=== PATIENT | female | born 1960 | race Caucasian/White ===

== ENCOUNTER → 2016-09-05 | Outpatient (CLI) | payer BC ==
--- NOTE | 2016-09-05 16:31 | KCIC ---
PROCEDURE Bilateral digital screening mammogram. HISTORY 56-year-old female presents for screening mammography. TECHNIQUE Full field digital craniocaudal and mediolateral oblique views of both breasts are obtained. Computer-aided detection is applied. COMPARISON 08/02/2014 FINDINGS Breast parenchymal composition: Level B - Scattered fibroglandular densities. There is no suspicious mass, calcification or architectural distortion within either breast. IMPRESSION BI-RADS Category 2: Benign finding. Annual mammography is recommended. Mammography is not 100% sensitive in detecting breast cancer. Therefore, a self breast exam and a clinical breast exam are very important. A negative mammogram does not negate a clinically suspicious finding and should not result in a delay in biopsying a clinically suspicious abnormality. This patient's information has been entered into a reminder system for the patient to be notified with the results of this examination and a target date for her next mammograms. Electronically signed by: Fiona Valladares (Sep 05, 2016 16:30:10)
== END | disposition home or self-care (01) ==
LOC: KCIC MAMMO 15:55
PROVIDERS: ATTEND Obstetrics & Gynecology
DX: Z12.31 Encounter for screening mammogram for malignant neoplasm of breast (principal)
CPT/HCPCS: G0202; 77067

== ENCOUNTER 2017-01-07 18:46 | Emergency (ER) | payer BC ==
[~2017-01-07] VITALS: Ht 170.2 cm; Wt 92.5 kg
[2017-01-07] MEDS ORDERED: ONDANSETRON PF 4 MG/2 ML VIAL. IV ONE (19:15)
[2017-01-07] MEDS ORDERED: IV NORMAL SALINE 1000ML BAG 1,000 ML IV ONE (19:15)
[2017-01-07 19:57] LABS: BASO % 0 % (0-3); EOS % 0 % (0-3); HEMATOCRIT 43.1 % (36.0-47.0); HEMOGLOBIN 14.9 g/dL (12.0-15.5); LYMPH # 0.8 x10^3/uL (1.0-4.8); LYMPH % 8 % (24-48); MEAN CORPUSCULAR HEMOGLOBIN 31 pg (25-35); MEAN CORPUSCULAR HGB CONC 35 g/dL (31-37); MEAN CORPUSCULAR VOLUME 90 fL (79-100); MONO % 6 % (0-9); NEUT % 86 % (31-73); PLATELET COUNT 194 x10^3/uL (140-400); RED CELL DISTRIBUTION WIDTH 13.3 % (11.5-14.5); WHITE BLOOD COUNT 9.3 x10^3/uL (4.0-11.0)
[2017-01-07 20:08] LABS: CALCIUM 8.3 mg/dL (8.5-10.1); CREATININE 1.1 mg/dL (0.6-1.0); POTASSIUM 3.5 mmol/L (3.5-5.1)
[2017-01-07 20:18] LABS: ALBUMIN 3.4 g/dL (3.4-5.0); ALBUMIN/GLOBULIN RATIO 1.1 (1.0-1.7); TOTAL BILIRUBIN 0.6 mg/dL (0.2-1.0); TOTAL PROTEIN 6.5 g/dL (6.4-8.2)
[2017-01-07 20:24] LABS: PLT ESTIMATE ADEQUATE (ADEQUATE)
[2017-01-07 20:30] VITALS: BP 117/54
[2017-01-07 21:14] LABS: BILIRUBIN,URINE SMALL (NEG); GLUCOSE,URINE NEGATIVE (NEG); NITRITE,URINE NEGATIVE (NEG); PH,URINE 5.5; PROTEIN,URINE 30 mg/dL (NEG-TRACE); UROBILINOGEN,URINE 0.2 mg/dL (0.2 mg/dL)
[2017-01-07 21:24] LABS: BACTERIA,URINE MODERATE /HPF (0-FEW); SQUAMOUS EPITHELIAL CELL,UR MOD /LPF
[2017-01-07] MEDS ORDERED: CIPR500T94 PO (21:40)
--- NOTE | 2017-01-07 21:40 | PHYS DOC ---
Past Medical History Past Medical History: No Pertinent History Past Surgical History: No Surgical History Alcohol Use: None Drug Use: None Adult General Chief Complaint Chief Complaint: SYNCOPE HPI HPI Patient is a 56 year old female who presents with syncope. The patient states she was working at [employer] prior to arrival, had onset of lightheadedness, tunnel vision, nausea, and reportedly experienced syncopal episode. She thinks she fell onto the ground. She denies any headache or neck pain at this time. No witnessed seizure activity, denies tongue biting or bowel/bladder incontinence. She states she has had numerous episodes of loose stools today without vomiting or abdominal pain. She thinks she was exposed to Salmonella after drinking orange juice because her mother had similar symptoms and was hospitalized at [facility] reportedly being treated for Salmonella with ciprofloxacin. The patient denies fevers or chills, chest pain, palpitations, shortness of breath, hematochezia or melena, dysuria or hematuria. Denies extremity numbness or weakness or pain. Denies any significant past medical history. PCP is Dr. Goel. Review of Systems Review of Systems Constitutional: Denies fever or chills , reports syncope Eyes: Denies change in visual acuity HENT: Denies nasal congestion or sore throat Respiratory: Denies cough or shortness of breath Cardiovascular: Denies chest pain or edema GI: Denies abdominal pain, nausea, vomiting, bloody stools, reports diarrhea : Denies dysuria or hematuria Musculoskeletal: Denies back pain or joint pain Integument: Denies rash or skin lesions Neurologic: Denies headache, focal weakness or sensory changes Current Medications Current Medications Current Medications Medications (Trade) Dose Ordered Sig/Jessica Start Time Stop Time Status Last Admin Dose Admin Ondansetron HCl (Zofran) 4 mg 1X ONCE 01/07/17 19:15 01/07/17 19:16 DC 01/07/17 19:39 4 MG Sodium Chloride 1,000 ml @ 1,000 mls/hr 1X ONCE 01/07/17 19:15 01/07/17 20:14 DC 01/07/17 19:40 1,000 MLS/HR Allergies Allergies Allergies Coded Allergies Type Severity Reaction Last Updated Verified No Known Drug Allergies 01/07/17 No Physical Exam Physical Exam Constitutional: Obese, no acute distress, non-toxic appearance. HENT: Normocephalic, atraumatic, bilateral external ears normal, oropharynx moist, nose normal. Eyes: PERRLA, EOMI, conjunctiva normal, no discharge. Neck: supple, no stridor. No midline C-spine tenderness, no meningismus Cardiovascular: RRR, no murmurs, no edema. Lungs & Thorax: LCTAB, no wheezing, no respiratory distress. Abdomen: soft, nontender, nondistended. Skin: Warm, dry, no erythema, no rash. Back: No CVA or spinal tenderness. Extremities: No tenderness, no edema. Neurologic: Alert and oriented X 3, cranial nerves II through XII grossly intact , symmetric strength and sensation upper and lower extremities, no focal deficits noted. Psychologic: Affect normal, judgement normal, mood normal. Current Patient Data Vital Signs Vital Signs Date Time Temp Pulse Resp B/P (MAP) Pulse Ox O2 Delivery O2 Flow Rate FiO2 01/07/17 20:30 96 18 117/54 (75) 95 Room Air 01/07/17 18:50 98.9 98.9 Lab Values Laboratory Tests Test 01/07/17 19:48 01/07/17 21:08 White Blood Count 9.3 x10^3/uL (4.0-11.0) Red Blood Count 4.80 x10^6/uL (3.50-5.40) Hemoglobin 14.9 g/dL (12.0-15.5) Hematocrit 43.1 % (36.0-47.0) Mean Corpuscular Volume 90 fL (79-100) Mean Corpuscular Hemoglobin 31 pg (25-35) Mean Corpuscular Hemoglobin Concent 35 g/dL (31-37) Red Cell Distribution Width 13.3 % (11.5-14.5) Platelet Count 194 x10^3/uL (140-400) Neutrophils (%) (Auto) 86 % (31-73) H Lymphocytes (%) (Auto) 8 % (24-48) L Monocytes (%) (Auto) 6 % (0-9) Eosinophils (%) (Auto) 0 % (0-3) Basophils (%) (Auto) 0 % (0-3) Neutrophils # (Auto) 8.0 x10^3uL (1.8-7.7) H Lymphocytes # (Auto) 0.8 x10^3/uL (1.0-4.8) L Monocytes # (Auto) 0.6 x10^3/uL (0.0-1.1) Eosinophils # (Auto) 0.0 x10^3/uL (0.0-0.7) Basophils # (Auto) 0.0 x10^3/uL (0.0-0.2) Segmented Neutrophils % 68 % (35-66) H Band Neutrophils % 11 % (0-9) H Lymphocytes % 14 % (24-48) L Monocytes % 7 % (0-10) Platelet Estimate Adequate (ADEQUATE) Sodium Level 138 mmol/L (136-145) Potassium Level 3.5 mmol/L (3.5-5.1) Chloride Level 104 mmol/L (98-107) Carbon Dioxide Level 23 mmol/L (21-32) Anion Gap 11 (6-14) Blood Urea Nitrogen 13 mg/dL (7-20) Creatinine 1.1 mg/dL (0.6-1.0) H Estimated GFR (Cockcroft-Gault) 51.0 BUN/Creatinine Ratio 12 (6-20) Glucose Level 148 mg/dL (70-99) H Calcium Level 8.3 mg/dL (8.5-10.1) L Total Bilirubin 0.6 mg/dL (0.2-1.0) Aspartate Amino Transferase (AST) 22 U/L (15-37) Alanine Aminotransferase (ALT) 25 U/L (14-59) Alkaline Phosphatase 49 U/L (46-116) Troponin I Quantitative < 0.017 ng/mL (0.000-0.055) HZ-Qer-B-Type Natriuretic Peptide 113 pg/mL (0-124) Total Protein 6.5 g/dL (6.4-8.2) Albumin 3.4 g/dL (3.4-5.0) Albumin/Globulin Ratio 1.1 (1.0-1.7) Lipase 100 U/L (73-393) Urine Collection Type Void Urine Color Tracee Urine Clarity Cloudy Urine pH 5.5 Urine Specific Calvert 1.020 Urine Protein 30 mg/dL (NEG-TRACE) Urine Glucose (UA) Negative mg/dL (NEG) Urine Ketones (Stick) 15 mg/dL (NEG) Urine Blood Large (NEG) Urine Nitrite Negative (NEG) Urine Bilirubin Small (NEG) Urine Urobilinogen Dipstick 0.2 mg/dL (0.2 mg/dL) Urine Leukocyte Esterase Small (NEG) Urine RBC 1-2 /HPF (0-2) Urine WBC 11-20 /HPF (0-4) Urine Squamous Epithelial Cells Mod /LPF Urine Bacteria Moderate /HPF (0-FEW) Urine Hyaline Casts Moderate /HPF Urine Mucus Mod /LPF Laboratory Tests 01/07/17 19:48 Laboratory Tests 01/07/17 19:48 EKG EKG Interpreted by me: Normal sinus rhythm rate 90, no acute ST or T wave changes, normal intervals, no ectopy. [] Radiology/Procedures Radiology/Procedures [] Course & Med Decision Making Course & Med Decision Making Pertinent Labs and Imaging studies reviewed. (See chart for details) The patient presents with diarrhea and syncope. She feels well and has unremarkable exam here. Gave IV fluids and obtained labs. She felt better & was able to ambulate independently in the department with steady gait. Afebrile, normal blood cell count and electrolytes. UA consistent with urinary tract infection although could be contaminated from diarrhea. She states she has been taking azithromycin prescribed this morning by her PCP but Cipro likely be more helpful if truly exposed to salmonella and would also cover for common urinary pathogens. Gave prescription for Cipro and told the patient she could discontinue azithromycin. Recommend rest, by mouth hydration with sips of clear liquids, provided with work note to use if desired. Follow-up with Dr. Goel in 2 -3 days if not improving. Return to the emergency department for high fever, severe pain, uncontrolled vomiting, blood in emesis or stools, recurrent syncope , any otherwise worsening condition. Discharged home in stable condition. [] Dragon Disclaimer Dragon Disclaimer This electronic medical record was generated, in whole or in part, using a voice recognition dictation system. Departure Departure Impression: Primary Impression: Syncope Additional Impression: Diarrhea Disposition: 01 HOME, SELF-CARE Condition: STABLE Referrals: ABBY GOEL MD (PCP) Patient Instructions: Diarrhea, Xlkk-[id number], Syncope, [id number] Additional Instructions: You were seen in the emergency department today for fainting associated with diarrhea. Please rest, drink clear liquids including Gatorade if not able to eat meals, try to stand up slowly from sitting position. Take prescribed antibiotic for urinary tract infection and suspected infectious diarrhea. Follow -up with Dr. Goel in 2-3 days. Return to the emergency department for recurrence of fainting, severe abdominal pain, uncontrolled vomiting, blood in vomit or stools, any otherwise worsening condition. Scripts Ciprofloxacin Hcl (CIPRO) 500 Mg Tablet 1 TAB PO BID, #14 TAB Prov: ALYSHA HELMS MD 01/07/17 Problem Qualifiers ALYSHA HELMS MD Jan 07, 2017 21:40
--- NOTE | 2017-01-08 06:14 | EKG ---
[facility] [address] [place] [address] Test Date: 2017-01-07 Test Time: 19:30:03 Pat Name: NGA KUMAR Department: Room: Gender: F Equipment Validation Specialist: : 1960 Requested By: ALYSHA HELMS Order Number: [id number] Reading MD: Colleen Lopes Measurements Intervals Hurley Rate: 90 P: 52 NJ: 140 QRS: 47 QRSD: 82 T: 39 QT: 340 QTc: 420 Interpretive Statements SINUS RHYTHM NORMAL ECG Electronically Signed On 01-10-2017 13:55:22 CDT by Colleen Lopes
== END 2017-01-07 21:55 | disposition home or self-care (01) ==
LOC: ER 18:46
DX: R55 Syncope and collapse (principal); R19.7 Diarrhea, unspecified
CPT/HCPCS: 36415; 80053; 81001; 83690; 83880; 84484; 85007; 85027; 87086; 93005; 96361; 96374; 99285; J2405; J7030

== ENCOUNTER → 2017-11-02 | Outpatient (CLI) | payer BC | END | disposition home or self-care (01) | LOC: KCIC MAMMO 16:06 | DX: Z12.31 Encounter for screening mammogram for malignant neoplasm of breast (principal) | CPT/HCPCS: 77067 ==

== ENCOUNTER 2020-04-08 11:50 | Emergency (ER) | payer BC, OTHER ==
[~2020-04-08] VITALS: Ht 170.2 cm; Wt 95.0 kg
[~2020-04-08 11:50] MED LIST: CIPR500T94 PO
[2020-04-08 11:55] VITALS: BP 140/69
[2020-04-08] MEDS ORDERED: IBUPROFEN 200 MG TABLET. PO ONE (12:00)
--- NOTE | 2020-04-08 12:29 | RAD ---
EXAM: 3 views right ankle DATE: 04/08/2020 11:58 AM INDICATION: Reason: right lateral ankle pain after fall / Spl. Instructions: / History: COMPARISON: No Prior FINDINGS: 1. There is oblique fracture through the fifth metatarsal only partially included in the [id number]. 2. In addition there is a subtle avulsion fracture at the lateral aspect of the likely hindfoot possibly from the lateral calcaneus or lateral cuboid which can be further assessed by dedicated right foot radiographs. 3. Subtle oblique lucency through the distal fibular diametaphysis is suspicious for nondisplaced fracture. 4. Ankle mortise is congruent. Talar dome is intact. Electronically signed by: Sal Farah MD (04/08/2020 12:26 PM) [id number]
--- NOTE | 2020-04-08 13:54 | RAD ---
Right foot 3 views 04/08/2020. Reason for exam: Pain after falling. There is an oblique fracture of the fifth metatarsal without apparent involvement of the joint surfaces. The distal fragment shows about 2 mm medial separation. No other fracture or dislocation is seen. IMPRESSION: Fifth metatarsal fracture. Electronically signed by: Ren Richey Jr., MD (04/08/2020 1:50 PM) [facility]
--- NOTE | 2020-04-08 14:01 | PHYS DOC ---
Past Medical History Past Medical History: No Pertinent History Past Surgical History: No Surgical History Smoking Status: Never Smoker Alcohol Use: None Drug Use: None General Adult EDM: Chief Complaint: ANKLE PROBLEM HPI: HPI: Patient is a 59-year-old female who presents with chief complaint of right ankle pain status post injury prior to arrival. States he was walking on a flight of steps, missed the last step, and twisted her right ankle. She describes an inversion injury. She notes pain to the fifth metatarsal area. She denies any proximal knee pain. Denies falling or striking her head. Denies loss of consciousness. States she has been able to bear some weight on her right foot but she does have crutches at home she has been using to help. Has not tried medicine prior to arrival. States the pain is aching in nature. Made worse with ambulation. No other complaints. Review of Systems: Review of Systems: Constitutional: Denies fever or chills. [] Eyes: Denies change in visual acuity. [] HENT: Denies nasal congestion or sore throat. [] Respiratory: Denies cough or shortness of breath. [] Cardiovascular: Denies chest pain or edema. [] GI: Denies abdominal pain, nausea, vomiting, bloody stools or diarrhea. [] : Denies dysuria. [] Musculoskeletal: Den positive for fall and ankle injury Integument: Denies rash. [] Neurologic: Denies headache, focal weakness or sensory changes. [] Endocrine: Denies polyuria or polydipsia. [] Lymphatic: Denies swollen glands. [] Psychiatric: Denies depression or anxiety. [] Heart Score: Risk Factors: Risk Factors: DM, Current or recent (<one month) smoker, HTN, HLP, family history of CAD, obesity. Risk Scores: Score 0 - 3: 2.5% MACE over next 6 weeks - Discharge Home Score 4 - 6: 20.3% MACE over next 6 weeks - Admit for Clinical Observation Score 7 - 10: 72.7% MACE over next 6 weeks - Early Invasive Strategies Current Medications: Current Medications Medications (Trade) Dose Ordered Sig/Jessica Start Time Stop Time Status Last Admin Dose Admin Ibuprofen (Motrin) 600 mg 1X ONCE 04/08/20 12:00 04/08/20 12:01 DC 04/08/20 12:12 600 MG Allergies: Allergies: Allergies Coded Allergies Type Severity Reaction Last Updated Verified No Known Drug Allergies 01/07/17 No Physical Exam: PE: Constitutional: Well developed, well nourished, no acute distress, non-toxic appearance. [] HENT: Normocephalic, atraumatic, bilateral external ears normal, oropharynx moist, no oral exudates, nose normal. [] Eyes: PERRLA, EOMI, conjunctiva normal, no discharge. [] Neck: Normal range of motion, no tenderness, supple, no stridor. [] Cardiovascular:Heart rate regular rhythm, no murmur [] Lungs & Thorax: Bilateral breath sounds clear to auscultation [] Abdomen: soft, no tenderness, no masses, no pulsatile masses. [] Skin: Warm, dry, no erythema, no rash. [] Back: No tenderness, no CVA tenderness. [] Extremities: R KNEE/ANKLE/FOOT: Focal tenderness to palpation at the distal portion of the fifth metatarsal. Tissue compartments are soft. Distal pulses are 2+. Knee extension is intact. Plantar flexion is intact. Proximal fibula is not tender to palpation. Medial malleolus is not tender to palpation. Lateral malleolus is not tender to palpation. 5th metatarsal head is not tender to palpation. There is no obvious deformity. Passive ROM is reduced due to pain. Active ROM is reduced due to pain. Neurologic: Alert and oriented X 3, normal motor function, normal sensory function, no focal deficits noted. [] Psychologic: Affect normal, judgement normal, mood normal. [] Current Patient Data: Vital Signs: Vital Signs Date Time Temp Pulse Resp B/P (MAP) Pulse Ox O2 Delivery O2 Flow Rate FiO2 04/08/20 11:55 97.9 85 16 140/69 (92) 99 Room Air 97.9 EKG: EKG: [] Radiology/Procedures: Radiology/Procedures: PROCEDURE: Splint application & evaluation Because of the condition described above in the chart, I decided it would be best for the patient's injury to be immobilized. A posterior short short and stirrup splint was placed on the right leg by the nurse, using Ortho-Glass to splint, under my supervision. After application, I evaluated the extremity and deemed it to be satisfactorily immobilized. In addition, the patient's distal neurological and vascular examination was unchanged, and without evidence of compartment syndrome. The patient tolerated the procedure well. [facility] [address] [place] [address] IMAGING REPORT Signed PATIENT: NGA KUMAR ACCOUNT: [id number] : 1960 LOCATION: ER AGE: 59 SEX: F EXAM STATUS: REG ER ORD. PHYSICIAN: PATRICIA CASE DO REASON: foot pain PROCEDURE: FOOT RIGHT 3V Right foot 3 views 04/08/2020. Reason for exam: Pain after falling. There is an oblique fracture of the fifth metatarsal without apparent involvement of the joint surfaces. The distal fragment shows about 2 mm medial separation. No other fracture or dislocation is seen. IMPRESSION: Fifth metatarsal fracture. Electronically signed by: Harley Richey Jr., MD (04/08/2020 1:50 PM) [facility] DICTATED and SIGNED BY: HARLEY RICHEY Jr, MD DATE: 04/08/20 1350 [] [facility] [address] [place] [address] IMAGING REPORT Signed PATIENT: NGA KUMAR ACCOUNT: [id number] : 1960 LOCATION: ER AGE: 59 SEX: F EXAM STATUS: PRE ER ORD. PHYSICIAN: PATRICIA CASE DO REASON: right lateral ankle pain after fall PROCEDURE: ANKLE RIGHT 3V EXAM: 3 views right ankle DATE: 04/08/2020 11:58 AM INDICATION: Reason: right lateral ankle pain after fall / Spl. Instructions: / History: COMPARISON: No Prior FINDINGS: 1. There is oblique fracture through the fifth metatarsal only partially included in the [id number]. 2. In addition there is a subtle avulsion fracture at the lateral aspect of the likely hindfoot possibly from the lateral calcaneus or lateral cuboid which can be further assessed by dedicated right foot radiographs. 3. Subtle oblique lucency through the distal fibular diametaphysis is suspicious for nondisplaced fracture. 4. Ankle mortise is congruent. Talar dome is intact. Electronically signed by: Sal Marshall MD (04/08/2020 12:26 PM) [id number] DICTATED and SIGNED BY: SAL MARSHALL MD DATE: 04/08/206 Course & Med Decision Making: Course & Med Decision Making Pertinent Labs and Imaging studies reviewed. (See chart for details) [] Patient is an overall well-appearing 59-year-old female who presents with chief complaint of right foot pain status post inversion injury. She does have point tenderness over the distal portion of the fifth metatarsal and overlying the ATF ligament. However she has no tenderness over the lateral medial malleoli. No calcaneal tenderness reproducible. Plain film imaging does reveal a mildly displaced distal fifth metatarsal fracture. No signs of Barnett fracture. Radiology did note subtle lucency in the lateral calcaneus and lateral malleoli. Although she has no bony tenderness over this area she will be placed in a posterior short and stirrup splint and made nonweightbearing. She was instructed to follow-up with orthopedic surgery in the next 2 to 3 days. Return precautions discussed and understood. Supportive care measures given. Instructed to follow-up with her primary care physician as well in 2 to 3 days. Stable for discharge home. Dragon Disclaimer: Dragon Disclaimer: This electronic medical record was generated, in whole or in part, using a voice recognition dictation system. Departure Departure Impression: Primary Impression: Fracture of 5th metatarsal Qualified Codes: S92.351A - Displaced fracture of fifth metatarsal bone, right foot, initial encounter for closed fracture Additional Impressions: Fibula fracture Qualified Codes: S82.831A - Other fracture of upper and lower end of right fibula, initial encounter for closed fracture Calcaneal fracture Qualified Codes: S92.001A - Unspecified fracture of right calcaneus, initial encounter for closed fracture Disposition: 01 HOME, SELF-CARE Condition: STABLE Referrals: Becky GOEL MD (PCP) CONTRERAS GEORGE MD Patient Instructions: Foot Fracture Scripts Hydrocodone/Apap 5-325 (NORCO 5-325 TABLET) 1 Each Tablet 1-2 EACH PO PRN Q6HRS PRN for PAIN, #10 as needed for pain Prov: PATRICIA CASE DO 04/08/20 Ibuprofen (IBUPROFEN) 600 Mg Tablet 600 MG PO PRN Q6HRS PRN for PAIN, #20 TAB take with food or milk Prov: PATRICIA CASE DO 04/08/20 Justicifation of Admission Dx: Justifications for Admission: Justification of Admission Dx: N/A PATRICIA CASE DO Apr 08, 2020 14:01
[2020-04-08] MEDS ORDERED: IBUP-1007 PO (14:18)
[2020-04-08] MEDS ORDERED: HYDR-3164 PO (14:18)
== END 2020-04-08 14:40 | disposition home or self-care (01) ==
LOC: ER 11:50
DX: S92.351A Displaced fracture of fifth metatarsal bone, right foot, initial encounter for closed fracture (principal); S82.831A Other fracture of upper and lower end of right fibula, initial encounter for closed fracture; S92.001A Unspecified fracture of right calcaneus, initial encounter for closed fracture; W10.8XXA Fall (on) (from) other stairs and steps, initial encounter; Y93.89 Activity, other specified; Y92.89 Other specified places as the place of occurrence of the external cause; Y99.8 Other external cause status
CPT/HCPCS: 29515; 73610; 73630; 99284

== ENCOUNTER → 2020-07-02 | Outpatient (CLI) | payer BC, OTHER ==
[~2020-07-02] MED LIST changes: +HYDR-3164 PO; +IBUP-1007 PO
--- NOTE | 2020-07-02 16:56 | KCIC ---
Bilateral digital screening mammograms: Reason for examination: Routine screening. Comparison is made to previous studies dated back to 08/02/2014. Interpretation was made with the benefit of CAD. The skin and nipples show no abnormalities. No abnormal axillary lymph nodes are seen. The breast par enchyma shows scattered fibroglandular density. (Breast density: Category B.) There continues be some parenchymal asymmetry in the upper outer quadrant of the right breast which is unchanged. There are no new dominant masses, suspicious calcifications or architectural distortions. A few punctate benign -appearing calcifications are again seen. Impression: No evidence of malignancy. Recommend routine screening. BI-RADS Category 2: Benign. "Our facility is accredited by the [employer] Mammography Program." This patient's information has been entered into a reminder system for the patient to be notified wit h the results of her examination and a target date for the next mammogram. Electronically signed by: Stacie Crowe MD (07/02/2020 4:53 PM) [id number]
== END ==
LOC: KCIC MAMMO 15:50
PROVIDERS: ATTEND Obstetrics & Gynecology
DX: Z12.31 Encounter for screening mammogram for malignant neoplasm of breast (principal)
CPT/HCPCS: 77067